=== PATIENT | male | born 1970 | race Caucasian/White ===

== ENCOUNTER → 2017-05-06 | Outpatient (CLI) | payer OTHER ==
--- NOTE | 2017-05-08 10:22 | MR ---
MR right wrist HISTORY: Villonodular synovitis, chronic wrist pain Multiplanar multisequence imaging through the right wrist No plain film supplied for correlation. There is motion on the exam. Technologist reports patient repeatedly fell asleep during the exam. At the site of the overlying marker at the dorsum of the hand and wrist there is fluid extending china g the extensor tendons. Small focus of low signal is present within a fluid collection at the level o f the distal ulna at the volar aspect measuring approximately 5 mm in size. Hypertrophic synovium not identified with certainty. Small area of fluid signal present at the volar aspect of the radiocarpal joint at the radial side. Lunotriquetral ligament, scapholunate ligament are thought to be intact. T riangular fibrocartilage is not well seen in its entirety but thought likely to be intact. Bone marro w signal is essentially maintained, proximal aspect of the scaphoid shows a questionable erosive focu s, some fluid signal is present at this level extending between the scaphoid and lunate joint space. Flexor and extensor tendons intact. IMPRESSION: Findings could represent synovitis, consider synovial chondromatosis, plain film correlat ion suggested for probable loose body at the level of the distal ulna.
== END | disposition home or self-care (01) ==
LOC: RADMRIMAIN 19:35
PROVIDERS: ATTEND Orthopaedic Surgery
DX: M25.531 Pain in right wrist (principal)